=== PATIENT | female | born 1960 | race Caucasian/White ===

== ENCOUNTER 2024-03-25 06:24 | Day surgery (SDC) | payer OTHER ==
[2024-03-23 11:22] LABS: Anion Gap 6.8 mEq/L (5.0-15.0); Potassium 3.8 mEq/L (3.5-5.1)
[2024-03-23 11:23] LABS: Absolute Lymphocytes (CBC) 1.8 K/uL (0.7-4.9); Absolute Monocytes 0.3 K/uL (0.1-1.3); Absolute Neutrophil 2.8 K/uL (1.8-8.0); Basophils % 0.6 % (0-1.3); Hematocrit 41.3 % (36.0-45.0); Hemoglobin 13.6 g/dL (12.0-15.0); Lymphocytes % 35.8 % (15.3-44.8); MCH 29.8 pg (27.0-35.0); MCV 90.3 fL (80-100); MPV 9.1 fL (7.6-11.3); Monocytes % 6.5 % (3.3-12.3); Neutrophils % 56.1 % (41.7-73.7); Platelets 239 thou/uL (152-406); RBC Red Blood Cell Count 4.57 M/uL (3.86-4.86)
--- NOTE | 2024-03-23 11:30 | RAD REPORT ---
EXAM: Chest Pa And Lat (2 Views) HISTORY: Pre-op pending hernia repair COMPARISON: None. FINDINGS: LUNGS/PLEURA: The lungs are clear. No pleural effusions or pneumothorax. No pulmonary edema. MEDIASTINUM: The mediastinal silhouette is within normal limits. CARDIAC: The cardiac silhouette is within normal limits. UPPER ABDOMEN: No significant abnormality. BONES: Probably chronic mid thoracic compression fracture. This may be T6 or T7. LINES/TUBES/OTHER: N/A IMPRESSION: No evidence of acute cardiopulmonary disease. .
[2024-03-25] MEDS ORDERED: CEFAZOLIN SODIUM 2 GM/VIAL ONE (06:44)
[2024-03-25] MEDS ORDERED: BUPIVACAINE 0.5% PF 10 ML VIAL ONE (07:07)
[2024-03-25] MEDS: Ringers Lactate 1,000 ML IV ONE (07:10)
[2024-03-25] MEDS ORDERED: LIDOCAINE 2% MPF 5 ML VIAL ONE (07:22)
[2024-03-25] MEDS ORDERED: ROCURONIUM 50 MG/5 ML VIAL IV ONE (07:22)
[2024-03-25] MEDS ORDERED: ONDANSETRON 4 MG/2 ML VIAL ONE (07:22)
[2024-03-25] MEDS ORDERED: propofoL 200 MG/20 ML VIAL IV ONE (07:22)
[2024-03-25] MEDS ORDERED: MIDAZOLAM HCL 2 MG/2 ML INJ ONE (07:22)
[2024-03-25] MEDS ORDERED: FENTANYL CITR 100 MCG/2 ML ONE (07:22)
[2024-03-25] MEDS ORDERED: SUGAMMADEX SODIUM 200 MG/2 ML VIAL IV ONE (07:24)
[2024-03-25] MEDS: CEFAZOLIN SODIUM 2 GM/VIAL IVPB ONE (07:44)
[2024-03-25] MEDS ORDERED: dexAMETHasone 10 MG/ML VIAL ONE (07:44)
[2024-03-25] MEDS: BUPIVACAINE 0.5% PF 10 ML VIAL SQ ONE ×2 (07:53→07:58)
[2024-03-25] MEDS ORDERED: KETOROLAC 30 MG/ML INJ ONE (08:10)
[2024-03-25] MEDS ORDERED: GLYCOPYRROLATE 0.2 MG/ML SYR ONE (08:15)
[2024-03-25] MEDS ORDERED: Mastisol Adhesive Liq ONE (08:22)
--- NOTE | 2024-03-25 08:33 | P.OP ---
Date of Service: 03/25/24 Preop diagnosis: Right inguinal hernia Postop diagnosis: Same Procedure performed: Repair of right inguinal hernia Surgeon: Ankit Toledo MD Lead Software Development Engineer: None Estimated blood loss: Minimal Specimen: Hernia sac, cord lipoma and round ligament Findings: As above Anesthesia: General Complications: None Drains: None Fluids and blood products: Nonapplicable Disposition: Recovery room Operative note: Patient brought to the OR and placed in supine position. General anesthesia began. Patient prepped and draped in usual sterile fashion. Marcaine 0.5% infiltrated locally. 15 blade used to make a 4 cm oblique incision between the right pubic tubercle and the anterior iliac superior spine. Subcutaneous tissue divided and bleeding controlled cautery. Julia's fascia identified and divided. Aponeurosis of the external abdominal oblique identified and mobilized inferiorly to expose the shelving edge. The aponeurosis opened through the external ring. Ilioinguinal nerve identified retracted out of the field of dissection. Round ligament excised. A hernia sac identified and high ligation performed. 2-0 Prolene suture ligature and freehand tie used. There was a cord lipoma present as well. This was excised as well and tied off with 2-0 chromic suture. Both specimens sent to pathology. Marlex mesh plug placed in the internal ring and secured with absorbable tacker. Onlay mesh placed in the inguinal floor secured medially to the pubic tubercle, inferior to the shelving edge, superior to the conjoined tendon and laterally to each other. Aponeurosis closed with 2-0 running Prolene suture. 3-0 chromic used to reapproximate Julia's fascia. 3-0 chromic also used to close skin. Sterile dressing applied and patient awakened. Patient taken to recovery room in good general condition. CC:Dr. Nick's
[2024-03-25] MEDS ORDERED: TRAMADOL 37.5mg/APAP 325mg PER TAB PO PRN (08:35)
[2024-03-25] MEDS: HYDROMORPHONE HCL 1 MG/ML INJ ONE ×2 (08:55→09:10)
[2024-03-25] MEDS: ONDANSETRON 4 MG/2 ML VIAL ONE (09:40)
[2024-03-25 11:05] VITALS: BP 130/56; TEMP 97.6; O2SAT 100
== END 2024-03-25 11:00 | disposition home or self-care (01) ==
LOC: OR 06:24
PROVIDERS: ATTEND Surgery
PROC: 0YU50JZ Supplement Right Inguinal Region with Synthetic Substitute, Open Approach (ICD-10-PCS; principal; 2024-03-25 07:30)
DX: K40.90 Unilateral inguinal hernia, without obstruction or gangrene, not specified as recurrent (principal)
CPT/HCPCS: 85025; 80048; 36415; 88302; 71046; 49505; J2704; J2003; J2250; J3010; J1100; J1171 ×2; J2405 ×2; J7120